=== PATIENT | female | born 1985 | race Caucasian/White ===

== ENCOUNTER 2017-05-24 10:02 | Emergency (ER) | payer OTHER ==
[2017-05-24 10:26] VITALS: BP 132/74; PULSE 96; TEMP 97.5; BMI 23.8
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
== END 2017-05-24 14:10 | disposition home or self-care (01) ==
LOC: JER 10:02
DX: S20.221A Contusion of right back wall of thorax, initial encounter (principal); Y08.89XA Assault by other specified means, initial encounter; Y93.89 Activity, other specified; Y92.89 Other specified places as the place of occurrence of the external cause; Y99.8 Other external cause status; W07.XXXA Fall from chair, initial encounter; Y07.03 Male partner, perpetrator of maltreatment and neglect
CPT/HCPCS: 99281-25